=== PATIENT | male | born 1960 | race Caucasian/White ===

== ENCOUNTER 2022-10-04 13:51 | Outpatient (REF) | payer SELFPAY ==
--- NOTE | 2022-10-08 09:19 | MHC.AU.HA3 ---
Hearing Instrument Follow-Up- Binaural Date of Visit: 10/04/22 Right Ear: Make, Model, Color, Serial Number: Oticon OPN S2 miniRITE-R SN: [id number] Color: Chroma Beige Compliance Associate Repair Warranty: 11/20/2021 Compliance Associate Loss and Damage Warranty: 11/20/2021 Battery Size: Rechargeable Log Rider/Slim Tube: Earmold/Dome/CShell/SlimTip:8mm open dome with retention tail Type of Wax Guard: miniFit Dispensed By: [facility] Date of Fitting: October 2018 Left Ear: Make, Model, Color, Serial Number: Oticon OPN S2 miniRITE-R SN: [id number] Color: Chroma Beige Compliance Associate Repair Warranty: 11/20/2021 Compliance Associate Loss and Damage Warranty: 11/20/2021 Battery Size: Rechargeable Log Rider/Slim Tube: Earmold/Dome/CShell/SlimTip: 8mm open dome with retention tail Type of Wax Guard: miniFit Dispensed By: [facility] Date of Fitting: October 2018 Follow-Up Summary: Virgil was a previous patient at the audiology clinic at [facility]. He has decided to transfer care here. He reported that his right hearing aid has not been holding a charge. He purchased a cheap hearing aid in [facility] where he lives for part of the year to use on his right ear in the meantime. Cleaned both hearing aids. Replaced domes, wax guards, and retention tail. Left hearing aid amplifying well. Right hearing aid would not charge in office. Switched left rechargeable battery to right hearing aid and able to charge without issues; therefore assuming right battery needs replacement. Connected left hearing aid to [employer] software to check health status of battery. Left battery in poor health. Virgil opted to replace both rechargeable batteries. Quoted $100.00 for two batteries. Virgil has left hearing aid; Right hearing aid here in repair drawer to hold until batteries arrive. Recommendations: Patient will be contacted when materials have arrived - Will need to schedule an appointment to replace rechargeable batteries in office Diagnosis Code(s): Primary Diagnosis: H90.3 Bilateral Sensorineural Hearing Loss Signature: Provider: Kailee Brar., [facility]
== END 2022-10-04 13:52 | disposition home or self-care (01) ==
LOC: HO.HAP 13:51
PROVIDERS: Visit Provider Internal Medicine
DX: Z46.1 Encounter for fitting and adjustment of hearing aid (principal); H90.3 Sensorineural hearing loss, bilateral
CPT/HCPCS: 92593

== ENCOUNTER 2022-10-29 11:19 | Outpatient (REF) | payer SELFPAY ==
--- NOTE | 2022-10-29 11:56 | MHC.AU.HA3 ---
Hearing Instrument Follow-Up- Binaural Date of Visit: 10/29/22 Right Ear: Make, Model, Color, Serial Number: Oticon OPN S2 miniRITE-R SN: [id number] Color: Chroma Beige Director Corporate Security Repair Warranty: 11/20/2021 Director Corporate Security Loss and Damage Warranty: 11/20/2021 Battery Size: Rechargeable Gas Meter Repair Supervisor/Slim Tube: 1/85 Earmold/Dome/CShell/SlimTip:8mm open dome with retention tail Type of Wax Guard: miniFit Dispensed By: [facility] Date of Fitting: October 2018 Left Ear: Make, Model, Color, Serial Number: Oticon OPN S2 miniRITE-R SN: [id number] Color: Chroma Beige Director Corporate Security Repair Warranty: 11/20/2021 Director Corporate Security Loss and Damage Warranty: 11/20/2021 Battery Size: Rechargeable Gas Meter Repair Supervisor/Slim Tube: 1/85 Earmold/Dome/CShell/SlimTip: 8mm open dome with retention tail Type of Wax Guard: miniFit Dispensed By: [facility] Date of Fitting: October 2018 Follow-Up Summary: Virgil picked up right hearing aid and new rechargeable batteries. Replaced both rechargeable batteries. Updated battery serial numbers in [employer] and [employer]. Paid $100.00 for the two rechargeable batteries. Recommendations: Hearing instrument follow-up or maintenance as needed. Diagnosis Code(s): Primary Diagnosis: H90.3 Bilateral Sensorineural Hearing Loss Signature: Provider: Eloisa Brar, [facility]
== END 2022-10-29 11:20 | disposition home or self-care (01) ==
LOC: HO.HAP 11:19
DX: Z46.1 Encounter for fitting and adjustment of hearing aid (principal); H90.3 Sensorineural hearing loss, bilateral
CPT/HCPCS: 92700; V5299

== ENCOUNTER 2023-05-28 15:00 | Outpatient (REF) | payer SELFPAY ==
--- NOTE | 2023-05-28 15:41 | MHC.AU.HA3 ---
Hearing Instrument Follow-Up- Binaural Date of Visit: 05/28/23 Right Ear: Make, Model, Color, Serial Number: Oticon OPN S2 miniRITE-R SN: [id number] Color: Chroma Beige Car Filler Repair Warranty: 11/20/2021 Car Filler Loss and Damage Warranty: 11/20/2021 [facility] Service Plan: none Battery Size: Rechargeable Planning Analyst/Slim Tube: Earmold/Dome/CShell/SlimTip:8mm open dome with retention tail Type of Wax Guard: miniFit Dispensed By: [facility] Date of Fitting: October 2018 Left Ear: Make, Model, Color, Serial Number: Oticon OPN S2 miniRITE-R SN: [id number] Color: Chroma Beige Car Filler Repair Warranty: 11/20/2021 Car Filler Loss and Damage Warranty: 11/20/2021 [facility] Service Plan: none Battery Size: Rechargeable Planning Analyst/Slim Tube: Earmold/Dome/CShell/SlimTip: 8mm open dome with retention tail Type of Wax Guard: miniFit Dispensed By: [facility] Date of Fitting: October 2018 Follow-Up Summary: Pt reports right volume down button not working. Cleaned and checked both aids, put in dehumidifier. Vacuumed and brushed. Also replaced domes, wax guards, and tails. Unable to restore movement of the right button. Advised pt this would be $330 OOW repair. Discussed alternative options such as using the left hearing aid solely to control both VIRK volumes. Set his aids for left to control volume and right to change programs. Pt satisfied with this option for now. Recommendations: Recommendations: Hearing instrument follow-up or maintenance as needed. Diagnosis Code(s): Primary Diagnosis: H90.3 Bilateral Sensorineural Hearing Loss Signature: Provider: Eloisa Draper, [facility]
== END 2023-05-28 15:01 | disposition home or self-care (01) ==
LOC: HO.HAP 15:00
PROVIDERS: Visit Provider Internal Medicine
DX: Z46.1 Encounter for fitting and adjustment of hearing aid (principal); H90.3 Sensorineural hearing loss, bilateral
CPT/HCPCS: 92593

== ENCOUNTER 2025-01-27 13:00 | Outpatient (REF) | payer SELFPAY ==
--- OUTSIDE RECORDS SUMMARY | 2025-01-27 17:09 | XMS_ITS | Clinical Summary ---
Author Organization [facility] Address [address] [place] [id number] Care Team Providers Care Shift Superintendent Name Role Phone Lauren Rodriguez MD Primary Care Provider [phone] Uri Narvaez MD Unavailable [phone] Allergies No known active allergies Medications 5-hydroxytrypto stroud, 5-HTP, 100 mg cap Take 1 capsule (100 mg total) by mouth daily. Active atomoxetine (STRATTERA) 10 MG capsule Take 1 capsule (10 mg total) by mouth. Active atomoxetine (STRATTERA) 25 MG capsule 3 Active atorvaSTATin (LIPITOR) 40 MG tablet 3 Active butalbital-acet aminophen-caffe ine (Fioricet) 50-325-40 mg per tablet Take 2 tablets by mouth every 4 hours as needed. Active cyclobenzaprine (FLEXERIL) 10 MG tablet 3 Active DOCOSAHEXAENOIC ACID ORAL Take 1 capsule by mouth daily. Active DULoxetine (CYMBALTA) [address] capsule Take 2 capsules (60 mg total) by mouth daily. Active DULoxetine (CYMBALTA) [address] capsule 3 Active multivitamin (THERAGRAN) tablet Take 1 tablet by mouth daily. Active [id number]-[id number] b-C 100-7.5-2.691 gram PwPk 3 Active potassium chloride ER (KLOR-CON) 8 MEQ ER tablet 3 Active Linda's wort 300 mg cap Take by mouth daily. Active white willow bark/salicin (white willow bark-salic, bulk,) 15 % Powd 1 capsule by Other route. Active zinc sulfate 50 mg zinc (220 mg) Tab Take 1 tablet (220 mg total) by mouth daily. Active ZOLMitriptan (ZOMIG) 2.5 MG tablet Take 1 tablet (2.5 mg total) by mouth daily as needed. Active ZOLMitriptan (ZOMIG) 5 MG tablet Active Boswellia toro extract (boswellia toro xt, bulk,) 70 % Powd by Miscellaneous route. Active hydrocortisone (ANUSOL-HC) 25 mg suppository Insert 1 suppository (25 mg total) into the rectum every morning & every evening. Active Social History Tobacco Use Types Packs/Day Years Used Date Smoking Tobacco: Never Smokeless Tobacco: Never Tobacco Cessation:Counseling Given: Not Answered Alcohol Use Standard Drinks/Week Comments Not Asked 0 (1 standard drink = 0.6 oz pur e alcohol) few times month Sex and Gender Information Value Date Recorded Sex Assigned at Male 10/11/2022 4:07 PM EDT Legal Sex Male 11:39 AM EDT Gender Identity Male 10/11/2022 4:07 PM EDT Sexual Orientation Not on file Last Filed Vital Signs Vital Sign Reading Time Taken Comments Blood Pressure 130/94 10/18/2022 1:10 PM EDT Pulse 61 10/18/2022 9:46 AM EDT Temperature 36.2 C (97.1 F) 10/18/2022 9:46 AM EDT Respiratory Rate 16 10/18/2022 9:46 AM EDT Oxygen Saturation 99% 10/18/2022 12:50 PM EDT Inhaled Oxygen Concentration - - Weight 72.6 kg (160 lb) 10/18/2022 9:46 AM EDT Height 170.2 cm (5' 7 ) 10/18/2022 9:46 AM EDT Body Mass Index 25.06 10/18/2022 9:46 AM EDT Plan of Treatment Health Maintenance Due Date Last Done Comments Blood Pressure 1959 PSA 1959 Prostate Cancer Screening 1959 SDM 1959 Depression Screening 1971 Hepatitis C Screening 07/09/1977 DTaP,Tdap,and Td Vaccines (1 - Tdap) 07/09/1978 CT Colonography 07/09/2004 FIT 07/09/2004 FOBT 07/09/2004 Multitarget Stool DNA (Cologuard) 07/09/2004 Sigmoidoscopy 07/09/2004 Pneumococcal Vaccine: 50+ Ye ars (1 of 1 - PCV) 07/09/2009 Zoster Vaccine (1 of 2) 07/09/2009 Lipid Panel 08/21/2022 08/21/2017 COVID-19 Vaccine (1 - 2024-2 6 season) 2024 Influenza Vaccine (#1) 2024 Colonoscopy 10/18/2032 10/18/2022 Colorectal Cancer Screening 10/18/2032 Meningococcal B Vaccines Aged Out No longer eligible based on patient's age to complete this topic Meningococcal Vaccines Aged Out No lo nger eligible based on patient's age to complete this topic Insurance [facility] [place] [id number] [facility] [id number] Care Teams Shift Superintendent Relationship Specialty Start Date End Date Lauren Rodriguez MD [address] [place] [address] PCP - General Internal Medicine 10/02/22 Uri Narvaez MD [address] [place] [address] PCP - Insurance Assigned PCP 10/02/22
== END 2025-01-27 13:01 | disposition home or self-care (01) ==
LOC: HO.HAP 13:00
PROVIDERS: Visit Provider Internal Medicine
DX: Z46.1 Encounter for fitting and adjustment of hearing aid (principal); H90.3 Sensorineural hearing loss, bilateral
CPT/HCPCS: 92593